=== PATIENT | male | born 1960 | race Caucasian/White ===

== ENCOUNTER 2022-01-13 23:25 | Emergency (ER) | payer SELFPAY ==
[~2022-01-13] VITALS: Ht 162.6 cm; Wt 80.0 kg
[2022-01-14 03:05] LABS: BASOPHILS % 0.3 % (0.0-2.0); EOSINOPHILS % 1.8 % (0.0-5.0); HEMATOCRIT. 27.5 % (42.0-52.0); HEMOGLOBIN. 8.9 g/dL (14.0-18.0); LYMPHOCYTES % 12.6 % (20.0-50.0); MEAN CORPUSCULAR HEMOGLOBIN 29.6 pg (28.0-32.0); MEAN PLATELET VOLUME 8.2 fl (7.4-10.4); NEUTROPHILS % 73.3 % (40.0-76.0); PLATELET 113 x1000/uL (130-400); RED BLOOD CELL COUNT 3.02 mill/uL (4.7-6.1); RED CELL DISTRIBUTION WIDTH 20.5 % (11.6-14.6)
[2022-01-14 03:12] LABS: CHLORIDE 97 mEq/L (98-107)
[2022-01-14 03:20] LABS: ETHANOL BLOOD 94 mg/dL
[2022-01-14 03:48] VITALS: BP 107/70
[2022-01-14] MEDS ORDERED: HYDROCODONE/ACETAMINOPHEN 10/325MG TABLET PO ONE (05:30)
== END 2022-01-14 06:37 | disposition home or self-care (01) ==
LOC: ER 23:25
DX: F10.129 Alcohol abuse with intoxication, unspecified (principal); Y90.4 Blood alcohol level of 80-99 mg/100 ml
CPT/HCPCS: 36415; 74176; 80053; 80320; 85025; 99284; G0480

== ENCOUNTER 2022-02-02 13:15 | Emergency (ER) | payer MEDICAID ==
[~2022-02-02] VITALS: Ht 172.7 cm; Wt 77.0 kg
[2022-02-02 14:50] LABS: HEMATOCRIT. 25.8 % (42.0-52.0); HEMOGLOBIN. 8.4 g/dL (14.0-18.0); MEAN CORPUSCULAR HEMOGLOBIN 29.6 pg (28.0-32.0); MEAN CORPUSCULAR VOLUME 91.2 fL (80.0-94.0); MEAN PLATELET VOLUME 9.7 fl (7.4-10.4); PLATELET 228 x1000/uL (130-400); RED BLOOD CELL COUNT 2.83 mill/uL (4.7-6.1); RED CELL DISTRIBUTION WIDTH 18.3 % (11.6-14.6)
[2022-02-02 14:54] LABS: CHLORIDE 93 mEq/L (98-107)
[2022-02-02 15:03] LABS: ETHANOL BLOOD < 10 mg/dL
[2022-02-02 15:06] LABS: INR 1.3
[2022-02-02 17:20] VITALS: BP 135/82
[2022-02-02 22:27] LABS: PLATELET ESTIMATE NORMAL
== END 2022-02-02 17:21 | disposition home or self-care (01) ==
LOC: ER 13:15
DX: R18.8 Other ascites (principal); Z20.822 Contact with and (suspected) exposure to COVID-19
CPT/HCPCS: 36415; 80053; 80320; 85025; 85610; 87426; 99283; C9803; G0480